=== PATIENT | male | born 1965 | race Caucasian/White ===

== ENCOUNTER 2017-09-23 11:10 | Emergency (ER) | payer BC ==
--- NOTE | 2017-09-23 11:53 | EDM.PDOC ---
ED HPI GENERAL MEDICAL PROBLEM - General Chief Complaint: Back Pain or Injury Stated Complaint: COUGHING Time Seen by Provider: 09/23/17 11:11 Source of Information: Reports: Patient History Limitations: Reports: No Limitations - History of Present Illness INITIAL COMMENTS - FREE TEXT/NARRATIVE: HISTORY AND PHYSICAL: History of present illness: Humberto is a 52-year-old male here with complaints of low back pain. He reports that 2 weeks ago he sneezed and felt a sharp pain in his low back. He states he has been a constant pain, worsens with activity and flexion/extension of the trunk. Improves with rest, Tylenol and Motrin. He denies any bowel or bladder incontinence, saddle anesthesia, gait difficulty, fever. He denies lower extremity pain, numbness, tingling. He reports a history of mild chronic back pain. Review of systems: As per history of present illness and below otherwise all systems reviewed and negative. Past medical history: As per history of present illness and as reviewed below otherwise noncontributory. Surgical history: As per history of present illness and as reviewed below otherwise noncontributory. Social history: Tobacco use No reported history of drug or alcohol abuse. Family history: As per history of present illness and as reviewed below otherwise noncontributory. Physical exam: HEENT: Atraumatic, normocephalic, pupils reactive, negative for conjunctival pallor or scleral icterus, mucous membranes moist, throat clear, neck supple, nontender, trachea midline. Lungs: Clear to auscultation, breath sounds equal bilaterally, chest nontender. Heart: S1S2, regular, negative for clicks, rubs, or JVD. Pelvis: Stable nontender. Genitourinary: Deferred. Rectal: Deferred. Extremities: No spinous process tenderness from the cervical spine to lumbar spine. Tenderness to palpation of the SI joints bilaterally. Tenderness of the right paraspinals. Atraumatic, negative for cords or calf pain. Neurovascular unremarkable. Neuro: Awake, alert, oriented. Cranial nerves II through XII unremarkable. Cerebellum unremarkable. Motor and sensory unremarkable throughout. Exam nonfocal. Notes: Diagnostics: [Lumbar x-ray] Therapeutics: [] Impression: [Lumbar back pain] Plan: [1. Discussed with patient using a heating pad, doing range of motion exercises , and gentle stretches, take anti-inflammatory medication as directed 2. Follow-up with your primary care provider 3. Return to ED as needed as discussed] Definitive disposition and diagnosis as appropriate pending reevaluation and review of above. Onset: Gradual Duration: Week(s): (2) Location: Reports: Back Quality: Reports: Ache, Stabbing Severity: Moderate Improves with: Reports: Medication (Motrin and Tylenol), Rest Worsens with: Reports: Movement (Flexion-extension of the trunk) Associated Symptoms: Reports: No Other Symptoms Treatments [employer]: Reports: Acetaminophen, NSAIDS lower back Pain Score (Numeric/FACES): 5 - Related Data Allergies Allergy/AdvReac Type Severity Reaction Status Date / Time No Known Allergies Allergy Verified 09/23/17 11:23 Home Meds: Home Meds Blood Pressure Medication 09/23/17 [History] Past Medical History Cardiovascular History: Reports: Hypertension - Infectious Disease History Infectious Disease History: Reports: None Social & Family History - Family History Family Medical History: Noncontributory - Tobacco Use Smoking Status *Q: Heavy Tobacco Smoker Years of Tobacco use: 20 Packs/Tins Daily: 1.0 - Alcohol Use Days Per Week of Alcohol Use: 7 Number of Drinks Per Day: 8 Total Drinks Per Week: 56 - Recreational Drug Use Recreational Drug Use: No ED ROS GENERAL - Review of Systems Review Of Systems: ROS reveals no pertinent complaints other than HPI. ED EXAM,LOWER BACK PAIN/INJURY - Physical Exam Exam: See Below (See dictation) Course - Vital Signs Last Recorded V/S: Last Vital Signs Temp 36.4 C 09/23/17 11:24 Pulse 77 09/23/17 11:24 Resp 18 09/23/17 11:24 BP 149/83 H 09/23/17 11:24 Pulse Ox 98 09/23/17 11:24 - Orders/Labs/Meds Orders: Active Orders 24 hr Category Date Time Status Lumbar Spine 2 or 3V [CR] Stat Exams 09/23/17 11:40 Taken Departure - Departure Time of Disposition: 12:36 Disposition: Home, Self-Care 01 Condition: Good Clinical Impression: Lumbar back pain - Discharge Information Referrals: PCP,None [Primary Care Provider] - Forms: ED Department Discharge Additional Instructions: The following information is given to patients seen in the emergency department who are being discharged to home. This information is to outline your options for follow-up care. We provide all patients seen in our emergency department with a follow-up referral. The need for follow-up, as well as the timing and circumstances, are variable depending upon the specifics of your emergency department visit. If you don't have a primary care physician on staff, we will provide you with a referral. We always advise you to contact your personal physician following an emergency department visit to inform them of the circumstance of the visit and for follow-up with them and/or the need for any referrals to a consulting specialist. The emergency department will also refer you to a specialist when appropriate. This referral assures that you have the opportunity for follow-up care with a specialist. All of these measure are taken in an effort to provide you with optimal care, which includes your follow-up. Under all circumstances we always encourage you to contact your private physician who remains a resource for coordinating your care. When calling for follow-up care, please make the office aware that this follow-up is from your recent emergency room visit. If for any reason you are refused follow-up, please contact the [facility] at and asked to speak to the emergency department charge nurse. 1. Discussed with patient using a heating pad, doing range of motion exercises, and gentle stretches, take anti-inflammatory medication as directed 2. Follow-up with your primary care provider 3. Return to ED as needed as discussed [facility] [address] [place] [id number] [id number] - My Orders Last 24 Hours: My Active Orders 09/23/17 11:40 Lumbar Spine 2 or 3V [CR] Stat - Assessment/Plan Last 24 Hours: My Active Orders 09/23/17 11:40 Lumbar Spine 2 or 3V [CR] Stat
--- NOTE | 2017-09-24 13:23 | CR ---
EXAM DATE: 09/23/17 PATIENT'S AGE: 52 Patient: KAYCE ÁLVAREZ Facility: [place], [place] Site . Site : 1965 Study: XRay Spine Lumbar [id number] 12:12:14 PM Ordering Physician: Doctor Fowler Final Report: Pain 3 view lumbar spine demonstrates mild dextro convex curvature of the lumbar spine. Normal height and alignment of the lumbar vertebral bodies. Diffuse mild degenerative change . No fractures are seen. IMPRESSION: 1. No acute fracture. Mild diffuse degenerative change of the lumbar spine. Dictated by Ara Hill MD @ Sep 23 2017 12:32PM (Electronic Signature) Report Signed by Proxy. [email or web address]
== END 2017-09-23 12:45 | disposition home or self-care (01) ==
LOC: MW.ED 11:10
DX: M54.5 Low back pain (principal); I10 Essential (primary) hypertension; F17.210 Nicotine dependence, cigarettes, uncomplicated
CPT/HCPCS: 72100; 72100-26; 99283